=== PATIENT | male | born 1965 | race African-American/Black ===

== ENCOUNTER 2017-05-07 11:57 | Emergency (ER) | payer MEDICAID ==
[~2017-05-07] VITALS: Ht 172.7 cm; Wt 80.0 kg
[2017-05-07] MEDS ORDERED: METF500T4 PO (12:12)
[2017-05-07 12:59] VITALS: BP 118/76
== END 2017-05-07 13:36 | disposition home or self-care (01) ==
LOC: ER 12:31
DX: S16.1XXA Strain of muscle, fascia and tendon at neck level, initial encounter (principal); E11.9 Type 2 diabetes mellitus without complications; V89.2XXA Person injured in unspecified motor-vehicle accident, traffic, initial encounter; Y93.89 Activity, other specified; Y92.89 Other specified places as the place of occurrence of the external cause; Y99.8 Other external cause status
CPT/HCPCS: 99283

== ENCOUNTER 2017-09-20 19:58 | Emergency (ER) | payer MEDICAID ==
[~2017-09-20] VITALS: Ht 175.3 cm; Wt 87.0 kg
[~2017-09-20 19:58] MED LIST: METF500T4 PO
[2017-09-20] MEDS ORDERED: SODIUM CHLORIDE 0.9% 1,000 ML IV ONE (23:47)
[2017-09-20] MEDS ORDERED: ONDANSETRON HCL 4MG/2ML VIAL IV STA (23:47)
[2017-09-21 00:08] LABS: HEMATOCRIT. 39.1 % (42.0-52.0); HEMOGLOBIN. 12.8 g/dL (14.0-18.0); MEAN CORPUSCULAR HEMOGLOBIN 27.3 pg (28.0-32.0); MEAN CORPUSCULAR VOLUME 83.4 fL (80.0-94.0); MEAN PLATELET VOLUME 8.3 fl (7.4-10.4); PLATELET 343 x1000/uL (130-400); RED BLOOD CELL COUNT 4.68 mill/uL (4.7-6.1); RED CELL DISTRIBUTION WIDTH 13.2 % (11.6-14.6)
[2017-09-21 00:15] LABS: CHLORIDE 102 mEq/L (98-107)
[2017-09-21 00:23] LABS: CARBON DIOXIDE 27 mEq/L (21-32); ETHANOL BLOOD < 10 mg/dL
[2017-09-21 01:16] LABS: CLARITY URINE CLEAR (CLEAR); COLOR URINE YELLOW (YELLOW); KETONES URINE NEGATIVE (NEGATIVE); LEUKOCYTE ESTERASE URINE NEGATIVE (NEGATIVE); NITRITE URINE NEGATIVE (NEGATIVE); OCCULT BLOOD URINE TRACE (NEGATIVE); PROTEIN URINE 1+ (NEGATIVE); SPECIFIC GRAVITY URINE 1.024 (1.005-1.030); UROBILINOGEN URINE 0.2 E.U./dL (0.2-1.0)
[2017-09-21] MEDS ORDERED: SODIUM CHLORIDE 0.9% 1,000 ML IV ONE (01:32)
[2017-09-21] MEDS ORDERED: ONDANSETRON HCL 4MG/2ML VIAL IV STA (01:32)
[2017-09-21] MEDS ORDERED: MORPHINE SULFATE 4 MG/ML CPJ (NOT FOR IM USE) IV ONE (01:45)
[2017-09-21 01:46] LABS: *AMPHETAMINES SCREEN URINE NEGATIVE (NEGATIVE); *BARBITURATES SCREEN URINE NEGATIVE (NEGATIVE); *BENZODIAZEPINES SCREEN URINE NEGATIVE (NEGATIVE); *COCAINE SCREEN URINE NEGATIVE (NEGATIVE); CANNABINOID URINE SCREEN NEGATIVE (NEGATIVE); METHADONE URINE SCREEN NEGATIVE (NEGATIVE); OPIATES URINE SCREEN NEGATIVE (NEGATIVE); PHENCYCLIDINE URINE SCREEN NEGATIVE (NEGATIVE)
[2017-09-21 05:08] LABS: ATYPICAL LYMPHOCYTES 1; PLATELET ESTIMATE NORMAL
[2017-09-21 06:06] VITALS: BP 153/77
== END 2017-09-21 06:09 | disposition home or self-care (01) ==
LOC: ER 19:58
DX: R10.11 Right upper quadrant pain (principal); E11.9 Type 2 diabetes mellitus without complications
CPT/HCPCS: 36415; 74176; 80053; 80305; 81001; 82962; 83690; 85025; 96361; 96374; 96375; 96376; 99285; G0482; J2270; J2405; J7030; Z7610

== ENCOUNTER 2019-06-03 21:50 | Inpatient (IN) | payer MEDICAID ==
[~2019-06-03] VITALS: Ht 177.8 cm; Wt 73.5 kg
[~2019-06-03 21:50] MED LIST changes: +METF-414 PO; -METF500T4 PO
[2019-06-03] MEDS ORDERED: ONDANSETRON HCL 4MG/2ML INJ IV STA (22:18)
[2019-06-03 23:14] LABS: BASOPHILS % 0.3 % (0.0-2.0); EOSINOPHILS % 0.1 % (0.0-5.0); HEMATOCRIT. 39.1 % (42.0-52.0); HEMOGLOBIN. 13.7 g/dL (14.0-18.0); LYMPHOCYTES % 9.1 % (20.0-50.0); MEAN CORPUSCULAR HEMOGLOBIN 28.7 pg (28.0-32.0); MEAN CORPUSCULAR VOLUME 81.9 fL (80.0-94.0); MEAN PLATELET VOLUME 7.9 fl (7.4-10.4); MONOCYTES % 9.3 % (2.0-8.0); NEUTROPHILS % 81.2 % (40.0-76.0); PLATELET 305 x1000/uL (130-400); RED BLOOD CELL COUNT 4.78 mill/uL (4.7-6.1)
[2019-06-03 23:17] LABS: CHLORIDE 101 mEq/L (98-107)
[2019-06-04] VITALS (36 sets, daily range): BP systolic 84–167; BP diastolic 43–105
[2019-06-04] MEDS ORDERED: DEXTROSE 50% WATER 50ML SYRINGE IV ONE ×2 (01:14→01:15)
[2019-06-04] MEDS ORDERED: DEXT 10%/0.45% NACL 1,000 ML IV ONE (01:15)
[2019-06-04] MEDS ORDERED: SODIUM CHLORIDE 0.9% 1,000 ML IV ONE (01:30)
[2019-06-04] MEDS: POTASSIUM CHLORIDE 20MEQ TABLET SR PO SCH ×2 (01:50→01:58)
[2019-06-04] MEDS ORDERED: NITR0.4T49 SL (04:01)
[2019-06-04] MEDS ORDERED: POLY1POW14 MC (04:01)
[2019-06-04] MEDS ORDERED: SODI1TAB3 PO (04:01)
[2019-06-04] MEDS ORDERED: MULT-1116 PO (04:01)
[2019-06-04] MEDS ORDERED: SENN-170 PO (04:01)
[2019-06-04] MEDS ORDERED: DEXTROSE 50% WATER 50ML SYRINGE IV PRN (06:15)
[2019-06-04 06:38] LABS: HEMATOCRIT. 34.7 % (42.0-52.0); HEMOGLOBIN. 12.3 g/dL (14.0-18.0); MEAN CORPUSCULAR HEMOGLOBIN 28.7 pg (28.0-32.0); MEAN CORPUSCULAR VOLUME 81.1 fL (80.0-94.0); PLATELET 285 x1000/uL (130-400); RED BLOOD CELL COUNT 4.29 mill/uL (4.7-6.1)
[2019-06-04] MEDS: BLOOD SUGAR DIAGNOSTIC STRIP TEST SCH ×15 (06:41→23:46)
[2019-06-04 06:50] LABS: CHLORIDE 100 mEq/L (98-107)
[2019-06-04 07:01] LABS: CREATINE KINASE 41 IU/L (39-308)
[2019-06-04 07:02] LABS: HDL CHOLESTEROL 32 mg/dL (40-59)
[2019-06-04 07:03] LABS: LDL CHOLESTEROL 56 mg/dL (5-100)
[2019-06-04 07:04] LABS: CREATINE KINASE MB FRACTION < 1.0 ng/mL (0.5-3.6)
[2019-06-04] MEDS ORDERED: MAGNESIUM 2 G PREMIX 50 ML IV NR (08:00)
[2019-06-04] MEDS ORDERED: POTASSIUM CHLORIDE INJ 40 MEQ in DEXT 5% WATER 250 ML IV NR (08:00)
[2019-06-04] MEDS ORDERED: DEXT 10%/0.45% NACL 1,000 ML IV SCH (08:00)
[2019-06-04] MEDS: ENOXAPARIN 40MG/0.4ML SYR SUBCUT SCH (09:25)
[2019-06-04] MEDS ORDERED: POTASSIUM CHLORIDE 20MEQ TABLET SR PO NR (10:45)
[2019-06-04] MEDS ORDERED: MIDO2.5T MT (11:35)
[2019-06-04 11:40] LABS: CLARITY URINE CLEAR (CLEAR); COLOR URINE YELLOW (YELLOW); KETONES URINE NEGATIVE (NEGATIVE); LEUKOCYTE ESTERASE URINE NEGATIVE (NEGATIVE); NITRITE URINE NEGATIVE (NEGATIVE); OCCULT BLOOD URINE NEGATIVE (NEGATIVE); PH URINE 5.5 (4.5-8.0); PROTEIN URINE NEGATIVE (NEGATIVE); SPECIFIC GRAVITY URINE 1.011 (1.005-1.030); UROBILINOGEN URINE 0.2 E.U./dL (0.2-1.0)
[2019-06-04 11:54] LABS: *BARBITURATES SCREEN URINE NEGATIVE (NEGATIVE); *BENZODIAZEPINES SCREEN URINE NEGATIVE (NEGATIVE); CANNABINOID URINE SCREEN NEGATIVE (NEGATIVE)
[2019-06-04 11:55] LABS: *AMPHETAMINES SCREEN URINE NEGATIVE (NEGATIVE); *COCAINE SCREEN URINE NEGATIVE (NEGATIVE); METHADONE URINE SCREEN NEGATIVE (NEGATIVE); OPIATES URINE SCREEN NEGATIVE (NEGATIVE); PHENCYCLIDINE URINE SCREEN NEGATIVE (NEGATIVE)
[2019-06-04] MEDS: MIDODRINE HCL 5MG TABLET PO SCH ×2 (13:10→17:00)
[2019-06-04 13:18] LABS: PLATELET ESTIMATE NORMAL
[2019-06-04 16:56] LABS: CREATINE KINASE 42 IU/L (39-308)
[2019-06-04 16:57] LABS: CREATINE KINASE MB FRACTION < 1.0 ng/mL (0.5-3.6)
[2019-06-05] VITALS (17 sets, daily range): BP systolic 130–163; BP diastolic 83–104
[2019-06-05] MEDS: BLOOD SUGAR DIAGNOSTIC STRIP TEST SCH ×12 (01:00→20:46)
[2019-06-05 06:00] LABS: CHLORIDE 101 mEq/L (98-107)
[2019-06-05] MEDS: ENOXAPARIN 40MG/0.4ML SYR SUBCUT SCH (08:36)
[2019-06-05] MEDS: MIDODRINE HCL 5MG TABLET PO SCH ×2 (13:33→23:42)
[2019-06-05] MEDS ORDERED: MORPHINE SULFATE 2 MG/ML CPJ (NOT FOR IM USE) IV PRN (19:00)
[2019-06-05] MEDS ORDERED: LORAZEPAM 0.5MG TABLET PO PRN (19:00)
[2019-06-05] MEDS ORDERED: ACETAMINOPHEN 325MG TABLET PO PRN (19:00)
[2019-06-05] MEDS ORDERED: HYDROCODONE/ACETAMINOPHEN 5/325MG TABLET PO PRN (19:00)
[2019-06-05] MEDS ORDERED: DOCUSATE SODIUM 100MG CAPSULE PO PRN (19:00)
[2019-06-05] MEDS ORDERED: IPRATROPIUM/ALBUTEROL 0.5-3(2.5)MG/3ML NEB HHN PRN (19:00)
[2019-06-05] MEDS ORDERED: DEXTROSE 50% WATER 50ML SYRINGE IV PRN (19:00)
[2019-06-05] MEDS ORDERED: ONDANSETRON HCL 4MG/2ML INJ IV PRN (19:00)
[2019-06-05] MEDS: DEXT 5%/LACTATED RINGERS 1,000 ML IV SCH (19:52)
[2019-06-05] MEDS ORDERED: MAGNESIUM 2 G PREMIX 50 ML IV NR (20:00)
[2019-06-05] MEDS ORDERED: MAGNESIUM 4 G PREMIX 100 ML IV NR (20:00)
[2019-06-05] MEDS: INSULIN LISPRO 100 UNITS/ML SUBCUT SCH (21:21)
[2019-06-06] VITALS: BP 154/97
[2019-06-06] MEDS: DEXAMETHASONE 4MG/ML 1ML VIAL IV SCH ×4 (00:54→17:09)
[2019-06-06 04:00] VITALS: BP 142/96
[2019-06-06] MEDS: MIDODRINE HCL 5MG TABLET PO SCH (06:12)
[2019-06-06] MEDS: BLOOD SUGAR DIAGNOSTIC STRIP TEST SCH ×4 (06:20→20:05)
[2019-06-06 06:39] LABS: INR 1.1; PROTHROMBIN TIME 11.4 sec (9.6-11.0)
[2019-06-06] MEDS: DEXT 5%/LACTATED RINGERS 1,000 ML IV SCH ×3 (07:05→19:47)
[2019-06-06 08:00] VITALS: BP 181/114
[2019-06-06] MEDS: INSULIN LISPRO 100 UNITS/ML SUBCUT SCH ×4 (08:16→20:20)
[2019-06-06] MEDS: CLONIDINE 0.1MG TABLET PO PRN (08:23)
[2019-06-06 12:00] VITALS: BP 100/73
[2019-06-06 16:00] VITALS: BP 162/94
[2019-06-06 20:00] VITALS: BP 149/91
[2019-06-07] VITALS (40 sets, daily range): BP systolic 100–156; BP diastolic 47–99
[2019-06-07] MEDS: DEXT 5%/LACTATED RINGERS 1,000 ML IV SCH ×4 (02:58→22:27)
[2019-06-07 05:53] LABS: BASOPHILS % 0.2 % (0.0-2.0); HEMATOCRIT. 38.3 % (42.0-52.0); HEMOGLOBIN. 13.4 g/dL (14.0-18.0); LYMPHOCYTES % 19.3 % (20.0-50.0); MEAN CORPUSCULAR HEMOGLOBIN 28.6 pg (28.0-32.0); MEAN CORPUSCULAR VOLUME 82.1 fL (80.0-94.0); MEAN PLATELET VOLUME 8.9 fl (7.4-10.4); MONOCYTES % 12.7 % (2.0-8.0); NEUTROPHILS % 67.8 % (40.0-76.0); PLATELET 331 x1000/uL (130-400); RED BLOOD CELL COUNT 4.67 mill/uL (4.7-6.1); RED CELL DISTRIBUTION WIDTH 12.8 % (11.6-14.6)
[2019-06-07 05:55] LABS: CHLORIDE 100 mEq/L (98-107)
[2019-06-07] MEDS: BLOOD SUGAR DIAGNOSTIC STRIP TEST SCH ×5 (06:33→21:00)
[2019-06-07] MEDS: DEXAMETHASONE 4MG/ML 1ML VIAL IV SCH ×4 (06:35→17:46)
[2019-06-07] MEDS ORDERED: DEXTROSE 50% WATER 50ML SYRINGE IV PRN (07:00)
[2019-06-07] MEDS: INSULIN LISPRO 100 UNITS/ML SUBCUT SCH ×4 (09:09→22:23)
[2019-06-07] MEDS ORDERED: LIDOCAINE HCL/EPINEPHRINE 1%-EPI 1:100,000 20 ML VIAL ONE (10:13)
[2019-06-07] MEDS ORDERED: BACITRACIN 50,000 UNITS/VIAL ONE (10:13)
[2019-06-07] MEDS ORDERED: THROMBIN (BOVINE) 5000 UNITS/VIAL TOP ONE (10:13)
[2019-06-07] MEDS ORDERED: NORMAL SALINE 0.9% 10 ML SYR ONE (10:13)
[2019-06-07] MEDS ORDERED: ROCURONIUM BROMIDE 10MG/ML VIAL 5ML IV ONE ×2 (11:34→12:05)
[2019-06-07] MEDS ORDERED: FENTANYL CITRATE/PF 50MCG/ML 2ML VIAL ONE ×2 (11:34→12:04)
[2019-06-07] MEDS ORDERED: DEXAMETHASONE 4MG/ML 1ML VIAL ONE (11:35)
[2019-06-07] MEDS ORDERED: MIDAZOLAM HCL 2 MG/2 ML VIAL ONE (11:35)
[2019-06-07] MEDS ORDERED: GLYCOPYRROLATE 0.2 MG/ML 2ML VIAL ONE (11:35)
[2019-06-07] MEDS ORDERED: METOCLOPRAMIDE HCL 10MG/2ML VIAL ONE (11:35)
[2019-06-07] MEDS ORDERED: ONDANSETRON HCL 4MG/2ML INJ ONE (11:35)
[2019-06-07] MEDS ORDERED: PHENYLEPHRINE HCL 10 MG/ML 1ML (IV VIAL) IV ONE (11:35)
[2019-06-07] MEDS ORDERED: PROPOFOL 200MG/20ML VIAL IV ONE ×2 (11:35→12:15)
[2019-06-07] MEDS ORDERED: NEOSTIGMINE METHYLSULFATE 1MG/ML 10 ML VIAL ONE (11:35)
[2019-06-07] MEDS ORDERED: EPHEDRINE SULFATE 50MG/ML VIAL ONE (11:35)
[2019-06-07] MEDS ORDERED: LIDOCAINE HCL/PF 1% 10 MG/ML 5ML VIAL ONE (11:35)
[2019-06-07] MEDS ORDERED: SODIUM CHLORIDE 0.9% 10ML VIAL ONE (11:35)
[2019-06-07] MEDS ORDERED: SUCCINYLCHOLINE CHLORIDE 200MG/10ML IV ONE (11:35)
[2019-06-07] MEDS ORDERED: CEFAZOLIN SODIUM 1000MG/VIAL ONE (11:35)
[2019-06-07] MEDS ORDERED: NITROGLYCERIN 50MG PREMIX 250 ML IV ONE (12:16)
[2019-06-07] MEDS ORDERED: MORPHINE SULFATE 4 MG/ML CPJ (NOT FOR IM USE) IV PRN (13:53)
[2019-06-07] MEDS ORDERED: CEFAZOLIN SODIUM 1000MG/VIAL IV SCH (14:00)
[2019-06-07] MEDS ORDERED: NALOXONE INJ IV PRN (15:00)
[2019-06-07] MEDS ORDERED: DIPHENHYDRAMINE INJ IV PRN (15:00)
[2019-06-07] MEDS ORDERED: ONDANSETRON INJ IV PRN (15:00)
[2019-06-07] MEDS: NICARDIPINE 100 MG in SODIUM CHLORIDE 0.9% 60 ML IV PRN (15:00)
[2019-06-07] MEDS: HYDROMORPHONE PCA 10MG/50ML IV PRN (16:04)
[2019-06-07] MEDS: CEFAZOLIN 1000MG PREMIX 50 ML IV SCH (20:25)
[2019-06-08] VITALS (123 sets, daily range): BP systolic 92–221; BP diastolic 45–202
[2019-06-08] MEDS: DEXAMETHASONE 4MG/ML 1ML VIAL IV SCH ×5 (00:37→23:40)
[2019-06-08] MEDS: DEXT 5%/LACTATED RINGERS 1,000 ML IV SCH ×3 (03:00→19:49)
[2019-06-08] MEDS: CEFAZOLIN 1000MG PREMIX 50 ML IV SCH ×3 (05:40→21:24)
[2019-06-08] MEDS: BLOOD SUGAR DIAGNOSTIC STRIP TEST SCH ×4 (06:30→21:18)
[2019-06-08] MEDS: INSULIN LISPRO 100 UNITS/ML SUBCUT SCH ×4 (06:40→21:26)
[2019-06-08] MEDS: HYDROMORPHONE PCA 10MG/50ML IV PRN (08:29)
[2019-06-08] MEDS ORDERED: BENZONATATE 100MG CAPSULE PO PRN (10:15)
[2019-06-08] MEDS: NICARDIPINE 100 MG in SODIUM CHLORIDE 0.9% 60 ML IV PRN (22:51)
[2019-06-09] VITALS (111 sets, daily range): BP systolic 72–157; BP diastolic 47–102
[2019-06-09] MEDS: DEXT 5%/LACTATED RINGERS 1,000 ML IV SCH ×3 (03:33→12:11)
[2019-06-09 05:32] LABS: HEMOGLOBIN. 12.8 g/dL (14.0-18.0); MEAN CORPUSCULAR HEMOGLOBIN 28.5 pg (28.0-32.0); MEAN CORPUSCULAR VOLUME 82.5 fL (80.0-94.0); MEAN PLATELET VOLUME 8.2 fl (7.4-10.4); PLATELET 286 x1000/uL (130-400); RED BLOOD CELL COUNT 4.49 mill/uL (4.7-6.1); RED CELL DISTRIBUTION WIDTH 13.1 % (11.6-14.6)
[2019-06-09] MEDS: CEFAZOLIN 1000MG PREMIX 50 ML IV SCH ×3 (05:35→21:18)
[2019-06-09] MEDS: DEXAMETHASONE 4MG/ML 1ML VIAL IV SCH ×3 (05:35→17:32)
[2019-06-09] MEDS: MORPHINE SULFATE 2 MG/ML CPJ (NOT FOR IM USE) IV PRN ×2 (05:36→22:03)
[2019-06-09 05:42] LABS: CHLORIDE 98 mEq/L (98-107)
[2019-06-09] MEDS: BLOOD SUGAR DIAGNOSTIC STRIP TEST SCH ×4 (06:28→21:16)
[2019-06-09] MEDS: INSULIN LISPRO 100 UNITS/ML SUBCUT SCH ×4 (06:33→21:18)
[2019-06-09 07:38] LABS: PLATELET ESTIMATE NORMAL
[2019-06-09] MEDS: HYDROMORPHONE PCA 10MG/50ML IV PRN ×2 (08:42→22:34)
[2019-06-09] MEDS: NICARDIPINE 100 MG in SODIUM CHLORIDE 0.9% 60 ML IV PRN (09:04)
[2019-06-09] MEDS ORDERED: INSULIN GLARGINE UD 100 UNITS/ML SYR SUBCUT SCH (22:00)
[2019-06-10] VITALS (50 sets, daily range): BP systolic 98–168; BP diastolic 56–104
[2019-06-10] MEDS: DEXAMETHASONE 4MG/ML 1ML VIAL IV SCH ×2 (00:23→06:15)
[2019-06-10] MEDS: DEXT 5%/LACTATED RINGERS 1,000 ML IV SCH ×2 (00:47→13:00)
[2019-06-10 05:08] LABS: HEMATOCRIT. 36.5 % (42.0-52.0); HEMOGLOBIN. 12.7 g/dL (14.0-18.0); MEAN CORPUSCULAR HEMOGLOBIN 28.6 pg (28.0-32.0); MEAN CORPUSCULAR VOLUME 82.2 fL (80.0-94.0); MEAN PLATELET VOLUME 8.1 fl (7.4-10.4); PLATELET 275 x1000/uL (130-400); RED BLOOD CELL COUNT 4.44 mill/uL (4.7-6.1); RED CELL DISTRIBUTION WIDTH 13.1 % (11.6-14.6)
[2019-06-10 05:12] LABS: CHLORIDE 99 mEq/L (98-107)
[2019-06-10] MEDS: BLOOD SUGAR DIAGNOSTIC STRIP TEST SCH ×4 (06:12→20:54)
[2019-06-10] MEDS: INSULIN LISPRO 100 UNITS/ML SUBCUT SCH ×4 (06:16→21:00)
[2019-06-10 09:59] LABS: PLATELET ESTIMATE NORMAL
[2019-06-10] MEDS ORDERED: LABETALOL 5MG/ML SYR 20 MG/4 ML SYRINGE IV PRN (11:15)
[2019-06-10] MEDS ORDERED: HYDROCODONE/ACETAMINOPHEN 5/325MG TABLET PO PRN (12:30)
[2019-06-10] MEDS: MORPHINE SULFATE 2 MG/ML CPJ (NOT FOR IM USE) IV PRN ×2 (14:33→20:54)
[2019-06-10] MEDS: CLONIDINE 0.1MG TABLET PO PRN (17:24)
[2019-06-10] MEDS: HYDROCODONE/ACETAMINOPHEN 5/325MG TABLET PO PRN ×2 (17:24→23:52)
[2019-06-10] MEDS: INSULIN GLARGINE UD 100 UNITS/ML SYR SUBCUT SCH (21:38)
[2019-06-11] VITALS (7 sets, daily range): BP systolic 100–175; BP diastolic 65–100
[2019-06-11] MEDS: MORPHINE SULFATE 2 MG/ML CPJ (NOT FOR IM USE) IV PRN ×2 (02:32→02:45)
[2019-06-11] MEDS: DEXT 5%/LACTATED RINGERS 1,000 ML IV SCH ×2 (04:15→06:30)
[2019-06-11] MEDS: BLOOD SUGAR DIAGNOSTIC STRIP TEST SCH ×4 (06:19→21:19)
[2019-06-11] MEDS: INSULIN LISPRO 100 UNITS/ML SUBCUT SCH ×4 (06:29→21:56)
[2019-06-11] MEDS: HYDROCODONE/ACETAMINOPHEN 5/325MG TABLET PO PRN ×4 (06:30→21:42)
[2019-06-11] MEDS: DEXAMETHASONE 4MG TABLET PO SCH (09:07)
[2019-06-11] MEDS: DILTIAZEM HCL 30MG TABLET PO SCH ×2 (14:00→21:43)
[2019-06-11] MEDS: CLONIDINE 0.1MG TABLET PO PRN (18:02)
[2019-06-11] MEDS: INSULIN GLARGINE UD 100 UNITS/ML SYR SUBCUT SCH (21:58)
[2019-06-12] VITALS: BP 143/81
[2019-06-12 04:15] VITALS: BP 138/91
[2019-06-12] MEDS: DILTIAZEM HCL 30MG TABLET PO SCH ×2 (05:47→13:46)
[2019-06-12] MEDS: MORPHINE SULFATE 2 MG/ML CPJ (NOT FOR IM USE) IV PRN ×3 (05:49→18:08)
[2019-06-12] MEDS: DEXT 5%/LACTATED RINGERS 1,000 ML IV SCH (06:03)
[2019-06-12] MEDS: BLOOD SUGAR DIAGNOSTIC STRIP TEST SCH ×3 (07:11→17:51)
[2019-06-12] MEDS: INSULIN LISPRO 100 UNITS/ML SUBCUT SCH ×3 (07:11→17:52)
[2019-06-12 08:00] VITALS: BP 118/68
[2019-06-12] MEDS: HYDROCODONE/ACETAMINOPHEN 5/325MG TABLET PO PRN (09:19)
[2019-06-12] MEDS: DEXAMETHASONE 4MG TABLET PO SCH (09:19)
[2019-06-12 11:58] LABS: CHLORIDE 96 mEq/L (98-107)
[2019-06-12 12:00] VITALS: BP 126/71
[2019-06-12] MEDS ORDERED: POTASSIUM CHLORIDE 20MEQ TABLET SR PO NR (13:28)
[2019-06-12] MEDS ORDERED: MAGNESIUM 4 G PREMIX 100 ML IV NR (14:30)
[2019-06-12 16:00] VITALS: BP 105/63
[2019-06-12] MEDS ORDERED: LANTUSUD SUBCUT (16:45)
[2019-06-12] MEDS ORDERED: CARSR90 MT (16:45)
[2019-06-12 18:21] VITALS: BP 105/63
== END 2019-06-12 20:40 | DRG 321 ==
LOC: ER 21:50 → MICUSO 06-04 01:14 → EDBEDREQSVC 06-04 01:18 → EDBEDREQTM 06-04 01:18 → EDBEDREQ 06-04 01:18 → ENRESERV 06-04 01:22 → 6EST 06-05 13:34 → MICUNO 06-07 12:30 → 8WST 06-10 13:12
PROVIDERS: ADMIT Internal Medicine; ATTEND Internal Medicine
PROC: 0RG2071 Fusion of 2 or more Cervical Vertebral Joints with Autologous Tissue Substitute, Posterior Approach, Posterior Column, Open Approach (ICD-10-PCS; principal; 2019-06-12)
PROC: 4A11X4G Monitoring of Peripheral Nervous Electrical Activity, Intraoperative, External Approach (ICD-10-PCS; 2019-06-12)
DX: M47.12 Other spondylosis with myelopathy, cervical region (principal); G82.50 Quadriplegia, unspecified; E11.43 Type 2 diabetes mellitus with diabetic autonomic (poly)neuropathy; E11.649 Type 2 diabetes mellitus with hypoglycemia without coma; E44.1 Mild protein-calorie malnutrition; R65.10 Systemic inflammatory response syndrome (SIRS) of non-infectious origin without acute organ dysfunction; M48.02 Spinal stenosis, cervical region; M54.12 Radiculopathy, cervical region; E87.2 Acidosis; G95.20 Unspecified cord compression; E87.6 Hypokalemia; D72.821 Monocytosis (symptomatic); E11.65 Type 2 diabetes mellitus with hyperglycemia; E83.42 Hypomagnesemia; I10 Essential (primary) hypertension; Z79.84 Long term (current) use of oral hypoglycemic drugs; Z68.23 Body mass index [BMI] 23.0-23.9, adult
CPT/HCPCS: 36415; 71045; 72040; 72141; 76000; 80048; 80061; 80305; 81003; 82533; 82550; 82553; 82962; 83036; 83605; 83735; 84443; 84484; 86850; 86900; 88304; 88311; 92610; 93005; 93306; 93970; 96374; 97110; 97162; 97164; 97166; 97168; 97530; 97535; 99291; C1893; J0330; J0690; J1100; J1170; J1650; J1815; J2250; J2270; J2370; J2405; J2704; J2710; J2765; J3010; J3475; J3480; J3490; J7030; J7050; J7060; J7070; J7121; J8540

== ENCOUNTER 2024-06-21 15:39 | Inpatient (IN) | payer MEDICAID, OTHER ==
[~2024-06-21] VITALS: Ht 177.8 cm; Wt 80.3 kg
[~2024-06-21 15:39] MED LIST changes: +CARSR90 MT; +LANTUSUD SUBCUT; +MIDO5TAB4 PO; +MULT-1116 PO; +NITR0.4T49 SL; +POLY1POW14 MC; +SENN-362 PO
[2024-06-21 16:42] LABS: BASOPHILS % 0.3 % (0.0-2.0); EOSINOPHILS % 2.6 % (0.0-5.0); HEMATOCRIT. 43.9 % (42.0-52.0); HEMOGLOBIN. 14.2 g/dL (14.0-18.0); LYMPHOCYTES % 17.4 % (20.0-50.0); MEAN CORPUSCULAR HEMOGLOBIN 29.5 pg (28.0-32.0); MEAN CORPUSCULAR HGB CONC 32.5 g/dL (31.0-37.0); MEAN CORPUSCULAR VOLUME 90.8 fL (80.0-94.0); MEAN PLATELET VOLUME 8.9 fl (7.4-10.4); MONOCYTES % 10.9 % (2.0-8.0); NEUTROPHILS % 68.8 % (40.0-76.0); PLATELET 179 x1000/uL (130-400); RED BLOOD CELL COUNT 4.83 mill/uL (4.7-6.1); RED CELL DISTRIBUTION WIDTH 13.9 % (11.6-14.6); WHITE BLOOD COUNT 6.8 x1000/uL (4.5-11.0)
[2024-06-21 16:45] LABS: CHLORIDE 112 mEq/L (98-107); POTASSIUM 2.9 mEq/L (3.5-5.1); SODIUM 145 mEq/L (136-145)
[2024-06-21 16:46] LABS: CALCIUM 8.1 mg/dL (8.7-10.4); CARBON DIOXIDE 24 mEq/L (21-32)
[2024-06-21 16:51] LABS: CREATININE 1.1 mg/dL (0.6-1.3); GLUCOSE 202 mg/dL (70-105); UREA NITROGEN BLOOD 17 mg/dL (9-23)
[2024-06-21 16:52] LABS: AMMONIA 29 uMol/L (<32)
[2024-06-21 16:58] LABS: ETHANOL BLOOD < 10 mg/dL (<10)
[2024-06-21] MEDS: SODIUM CHLORIDE 0.9% 1,000 ML IV ONE (19:33)
[2024-06-21] MEDS: KCL 10MEQ/50ML PREMIX 50 ML IV ONE (19:33)
[2024-06-21 23:52] VITALS: BP 94/62; PULSE 65; RESP 18; TEMP 36.22512; O2SAT 99
[2024-06-22] VITALS (9 sets, daily range): BP systolic 16–120; BP diastolic 59–88; PULSE 65–97; RESP 16–19; TEMP 36.2512–36.9184; O2SAT 95–100
[2024-06-22] MEDS ORDERED: FLUD0.1T PO (10:31)
[2024-06-22] MEDS ORDERED: ALOG12.5 PO (10:31)
[2024-06-22] MEDS ORDERED: DULO30CA52 PO (10:31)
[2024-06-22] MEDS ORDERED: ATOR-2 PO (10:31)
[2024-06-22] MEDS ORDERED: MIDO10TA PO (10:31)
[2024-06-22] MEDS ORDERED: ASPI-1497 PO (10:31)
[2024-06-22] MEDS ORDERED: GABA-532 PO (10:31)
[2024-06-22] MEDS ORDERED: GLIP5TAB22 PO (10:31)
[2024-06-22] MEDS ORDERED: BACL-141 PO (10:31)
[2024-06-22] MEDS ORDERED: DILT120T13 PO (10:31)
[2024-06-22] MEDS ORDERED: INSU100V43 SQ (10:31)
[2024-06-22] MEDS: SODIUM CHLORIDE 0.45% 1,000 ML IV SCH (13:35)
[2024-06-22] MEDS ORDERED: HYDROCODONE/ACETAMINOPHEN 5/325MG TABLET PO PRN (15:15)
[2024-06-22] MEDS ORDERED: CLONIDINE 0.1MG TABLET PO PRN (15:15)
[2024-06-22] MEDS: CEFEPIME 1GM/50ML 50 ML IV SCH (17:37)
[2024-06-22 17:51] LABS: BASOPHILS % 0.4 % (0.0-2.0); EOSINOPHILS % 1.6 % (0.0-5.0); HEMATOCRIT. 40.3 % (42.0-52.0); HEMOGLOBIN. 13.4 g/dL (14.0-18.0); LYMPHOCYTES % 16.3 % (20.0-50.0); MEAN CORPUSCULAR HEMOGLOBIN 30.3 pg (28.0-32.0); MEAN CORPUSCULAR HGB CONC 33.4 g/dL (31.0-37.0); MEAN CORPUSCULAR VOLUME 90.7 fL (80.0-94.0); MEAN PLATELET VOLUME 8.9 fl (7.4-10.4); MONOCYTES % 12.1 % (2.0-8.0); NEUTROPHILS % 69.6 % (40.0-76.0); PLATELET 137 x1000/uL (130-400); RED BLOOD CELL COUNT 4.44 mill/uL (4.7-6.1); RED CELL DISTRIBUTION WIDTH 13.7 % (11.6-14.6); WHITE BLOOD COUNT 6.3 x1000/uL (4.5-11.0)
[2024-06-22 17:57] LABS: CHLORIDE 109 mEq/L (98-107); POTASSIUM 3.8 mEq/L (3.5-5.1); SODIUM 142 mEq/L (136-145)
[2024-06-22 17:58] LABS: CARBON DIOXIDE 29 mEq/L (21-32)
[2024-06-22 17:59] LABS: CALCIUM 9.1 mg/dL (8.7-10.4)
[2024-06-22 18:03] LABS: CREATININE 0.9 mg/dL (0.6-1.3); GLUCOSE 142 mg/dL (70-105); UREA NITROGEN BLOOD 17 mg/dL (9-23)
[2024-06-22 18:13] LABS: TROPONIN I HIGH SENSITIVITY 607 ng/L (3.0-53)
[2024-06-22] MEDS ORDERED: IPRATROPIUM/ALBUTEROL 0.5-3(2.5)MG/3ML NEB HHN PRN (18:30)
[2024-06-22] MEDS ORDERED: NALOXONE HCL 0.4MG/ML VIAL IV PRN (18:45)
[2024-06-22] MEDS: ASPIRIN 325MG EC TABLET PO NR (18:46)
[2024-06-22] MEDS ORDERED: DEXTROSE 50% WATER 50ML SYRINGE IV PRN (19:00)
[2024-06-22] MEDS ORDERED: CEFEPIME 1GM IN DEXT 5% 50ML IV SCH (20:00)
[2024-06-22 20:37] LABS: TROPONIN I HIGH SENSITIVITY 596 ng/L (3.0-53)
[2024-06-22] MEDS: IPRATROPIUM/ALBUTEROL 0.5-3(2.5)MG/3ML NEB HHN SCH (21:20)
[2024-06-22] MEDS: ATORVASTATIN CALCIUM 40MG TABLET PO SCH (21:44)
[2024-06-22] MEDS: BLOOD SUGAR DIAGNOSTIC STRIP TEST SCH (21:44)
[2024-06-22] MEDS: ENOXAPARIN 80MG/0.8ML SYR SUBCUT SCH (21:45)
[2024-06-22] MEDS: INSULIN LISPRO 100 UNITS/ML SUBCUT SCH (21:46)
[2024-06-22] MEDS: INSULIN GLARGINE 100 UNITS/ML SUBCUT SCH (21:47)
[2024-06-22 22:54] LABS: TROPONIN I HIGH SENSITIVITY 531 ng/L (3.0-53)
[2024-06-22 22:55] LABS: TROPONIN I HIGH SENSITIVITY 549 ng/L (3.0-53)
[2024-06-23] VITALS (7 sets, daily range): BP systolic 90–151; BP diastolic 60–92; PULSE 80–97; RESP 16–20; TEMP 36.44736–37.16964; O2SAT 19–99
[2024-06-23 06:02] LABS: CLARITY URINE CLEAR (CLEAR); COLOR URINE YELLOW (YELLOW); GLUCOSE URINE NEGATIVE (NEGATIVE); KETONES URINE NEGATIVE (NEGATIVE); LEUKOCYTE ESTERASE URINE 1+ (NEGATIVE); NITRITE URINE NEGATIVE (NEGATIVE); OCCULT BLOOD URINE NEGATIVE (NEGATIVE); PH URINE 5.5 (4.5-8.0); PROTEIN URINE NEGATIVE (NEGATIVE); SPECIFIC GRAVITY URINE 1.021 (1.005-1.030); UROBILINOGEN URINE 0.2 E.U./dL (0.2-1.0)
[2024-06-23 06:24] LABS: *AMPHETAMINES SCREEN URINE NEGATIVE (NEGATIVE); *BARBITURATES SCREEN URINE NEGATIVE (NEGATIVE); *BENZODIAZEPINES SCREEN URINE NEGATIVE (NEGATIVE); *COCAINE SCREEN URINE NEGATIVE (NEGATIVE)
[2024-06-23 06:25] LABS: CANNABINOID URINE SCREEN NEGATIVE (NEGATIVE); ECSTASY MDMA SCREEN URINE NEGATIVE (NEGATIVE); METHADONE URINE SCREEN NEGATIVE (NEGATIVE); OPIATES URINE SCREEN NEGATIVE (NEGATIVE); PHENCYCLIDINE URINE SCREEN NEGATIVE (NEGATIVE)
[2024-06-23 07:13] LABS: SQUAMOUS EPITHELIAL CELL URINE 1+ /lpf (RARE/1+)
[2024-06-23 07:14] LABS: BACTERIA URINE 1+; RBC URINE 0-2 /hpf (0-2)
[2024-06-23 08:59] LABS: BASOPHILS % 0.2 % (0.0-2.0); EOSINOPHILS % 1.3 % (0.0-5.0); HEMATOCRIT. 39.9 % (42.0-52.0); HEMOGLOBIN. 13.1 g/dL (14.0-18.0); LYMPHOCYTES % 12.1 % (20.0-50.0); MEAN CORPUSCULAR HEMOGLOBIN 29.6 pg (28.0-32.0); MEAN CORPUSCULAR VOLUME 89.9 fL (80.0-94.0); MEAN PLATELET VOLUME 9.1 fl (7.4-10.4); MONOCYTES % 12.7 % (2.0-8.0); NEUTROPHILS % 73.7 % (40.0-76.0); PLATELET 129 x1000/uL (130-400); RED BLOOD CELL COUNT 4.44 mill/uL (4.7-6.1); RED CELL DISTRIBUTION WIDTH 13.5 % (11.6-14.6); WHITE BLOOD COUNT 7.3 x1000/uL (4.5-11.0)
[2024-06-23] MEDS: DILTIAZEM HCL 120MG CAPSULE ER 24HR PO SCH (09:00)
[2024-06-23] MEDS ORDERED: MIDODRINE HCL 5MG TABLET PO SCH (09:00)
[2024-06-23] MEDS ORDERED: ENOXAPARIN 40MG/0.4ML SYR SUBCUT SCH (09:00)
[2024-06-23] MEDS: ASPIRIN 81MG EC TABLET PO SCH (09:33)
[2024-06-23] MEDS: DULOXETINE HCL 30MG DR CAPSULE PO SCH (09:33)
[2024-06-23] MEDS: MIDODRINE HCL 5MG TABLET PO SCH (09:33)
[2024-06-23 09:49] LABS: CARBON DIOXIDE 26 mEq/L (21-32); CHLORIDE 108 mEq/L (98-107); POTASSIUM 3.7 mEq/L (3.5-5.1); SODIUM 142 mEq/L (136-145)
[2024-06-23 09:50] LABS: CALCIUM 9.1 mg/dL (8.7-10.4)
[2024-06-23 09:54] LABS: CREATININE 0.9 mg/dL (0.6-1.3); GLUCOSE 117 mg/dL (70-105)
[2024-06-23 09:55] LABS: UREA NITROGEN BLOOD 15 mg/dL (9-23)
[2024-06-23 09:56] LABS: ALANINE AMINOTRANSFERASE 29 IU/L (10-49); ALBUMIN 3.8 g/dL (3.2-4.8); ASPARTATE AMINOTRANSFERASE 20 IU/L (<34)
[2024-06-23 09:57] LABS: BILIRUBIN TOTAL 2.2 mg/dL (0.1-1.0); PROTEIN TOTAL 6.4 g/dL (6.0-8.3)
[2024-06-23] MEDS: LACTULOSE 20G/30ML UDC PO NR (10:25)
[2024-06-23 11:39] LABS: INR 1.1
[2024-06-23] MEDS: ENOXAPARIN 80MG/0.8ML SYR SUBCUT SCH (12:48)
[2024-06-24] VITALS (8 sets, daily range): BP systolic 102–141; BP diastolic 64–80; PULSE 78–95; RESP 17–18; TEMP 36.50292–37.89192; O2SAT 99–100
[2024-06-24 07:17] LABS: T4 FREE 1.38 ng/dL (0.89-1.76); THYROID STIMULATING HORMONE 1.32 uIU/mL (0.55-4.78)
[2024-06-24] MEDS: ACETAMINOPHEN 325MG TABLET PO PRN (22:15)
[2024-06-25 04:00] VITALS: BP 91/60; PULSE 77; RESP 18; TEMP 36.50292; O2SAT 95
[2024-06-25 08:06] VITALS: BP 101/64; PULSE 76; RESP 18; TEMP 36.6696; O2SAT 97
[2024-06-25 12:00] VITALS: BP 146/79; PULSE 70; RESP 16; TEMP 36.44736; O2SAT 97
[2024-06-25] MEDS: CEFTRIAXONE 1GM/50ML 50ML IV SCH (15:00)
[2024-06-25 16:00] VITALS: BP 92/60; PULSE 77; RESP 16; TEMP 36.61404; O2SAT 97
[2024-06-25 19:58] VITALS: BP 133/81; PULSE 84; TEMP 98.4; O2SAT 96
[2024-06-25 20:00] VITALS: BP 133/81; PULSE 84; RESP 19; TEMP 36.33624; O2SAT 96
== END 2024-06-25 21:00 | DRG 812 ==
LOC: ER 15:39 → EDBEDREQ 19:46 → 5WST 19:50 → 8WST 06-22 08:30
PROVIDERS: ADMIT Internal Medicine; ATTEND Internal Medicine
DX: T40.601A Poisoning by unspecified narcotics, accidental (unintentional), initial encounter (principal); J96.01 Acute respiratory failure with hypoxia; I21.4 Non-ST elevation (NSTEMI) myocardial infarction; G92.8 Other toxic encephalopathy; Z20.822 Contact with and (suspected) exposure to COVID-19; I10 Essential (primary) hypertension; N39.0 Urinary tract infection, site not specified; E87.6 Hypokalemia; I48.0 Paroxysmal atrial fibrillation; E11.9 Type 2 diabetes mellitus without complications; I95.89 Other hypotension; E78.00 Pure hypercholesterolemia, unspecified; I25.10 Atherosclerotic heart disease of native coronary artery without angina pectoris; Z74.01 Bed confinement status; Z79.82 Long term (current) use of aspirin; Y92.89 Other specified places as the place of occurrence of the external cause; Z79.84 Long term (current) use of oral hypoglycemic drugs; Z79.4 Long term (current) use of insulin; I25.2 Old myocardial infarction
CPT/HCPCS: 36415; 71045; 80048; 80053; 80305; 80320; 81003; 82140; 82962; 83036; 84439; 84443; 84484; 85025; 87077; 87186; 87426; 93005; 94640; 99291; C1893; J0692; J0696; J1650; J1815; J3480; J7030; G0480